=== PATIENT | female | born 1995 | race African-American/Black ===

== ENCOUNTER 2024-06-03 10:39 | Emergency (ER) | payer BC ==
[2024-06-03 11:21] LABS: #Basophils 0.03 10x3/uL (0.0-0.2); %Basophils 0.6 % (0.0-1.0); %Eosinophils 1.3 % (0.0-10.0); %Lymphocytes 24.6 % (21.0-51.0); %Monocytes 6.5 % (0.0-10.0); Hemoglobin 12.9 g/dL (12.0-16.0); Mean Corpuscular HGB CONC 32.3 g/dL (32.0-36.0); Mean Corpuscular Hemoglobin 28.8 pg (27.0-31.0); Mean Corpuscular Volume 89.3 fL (78.0-98.0); Mean Platelet Volume 10.3 fL (7.4-10.4); Platelet Count 192 10x3/uL (130-400); RBC Distribution Width 13.1 % (11.5-14.5); Red Blood Cell (RBC) Count 4.48 mill/uL (4.20-5.40)
[2024-06-03 11:39] LABS: ALT (SGPT) 17 U/L (8-55); AST (SGOT) 15 U/L (5-34); Alkaline Phosphatase 56 U/L (40-110); Anion Gap 14 mmol/L (10-20); BUN (Urea Nitrogen) 12 mg/dL (7.0-18.7); Bilirubin, Total 0.7 mg/dL (0.2-1.2); Calc. Creatinine Clearance 0 mL/min (70-130); Calcium 8.9 mg/dL (7.8-10.44); Carbon Dioxide 19 mmol/L (22-29); Chloride 110 mmol/L (98-107); Estimated GFR 96; Globulin 3.2 g/dL (2.4-3.5); Glucose 109 mg/dL (70-105); Protein, Total 7.2 g/dL (6.0-8.3); Sodium 139 mmol/L (136-145)
== END 2024-06-03 12:35 | disposition home or self-care (01) ==
LOC: ERS 10:39
DX: F41.1 Generalized anxiety disorder (principal); Z55.0 Illiteracy and low-level literacy
CPT/HCPCS: 36415; 80053; 84443; 85025; 99284

== ENCOUNTER 2024-08-04 07:05 | Emergency (ER) | payer BC ==
[2024-08-04] MEDS ORDERED: Bacitracin 1 PK ONE (07:41)
== END 2024-08-04 08:04 | disposition home or self-care (01) ==
LOC: ERS 07:05
DX: T16.2XXA Foreign body in left ear, initial encounter (principal); H93.8X2 Other specified disorders of left ear; W44.8XXA Other foreign body entering into or through a natural orifice, initial encounter
CPT/HCPCS: 99282

== ENCOUNTER 2025-03-18 09:14 | Emergency (ER) | payer BC | END 2025-03-18 10:00 | disposition home or self-care (01) | LOC: ERS 09:14 | DX: M25.60 Stiffness of unspecified joint, not elsewhere classified (principal); Z79.899 Other long term (current) drug therapy | CPT/HCPCS: 99283 ==